=== PATIENT | female | born 1990 | race Caucasian/White ===

== ENCOUNTER 2021-10-19 09:37 | Emergency (ER) | payer BC, SELFPAY ==
[2021-10-19 09:49] VITALS: BP 119/79; PULSE 95; RESP 16; TEMP 37.3; O2SAT 99
--- NOTE | 2021-10-19 09:51 | ED.SKABFB ---
HPI - Skin/Abscess/Foreign Bdy General Chief complaint: Skin/Abscess/Foreign Body Stated complaint: rash Time Seen by Provider: 10/19/21 09:50 History of Present Illness HPI narrative: Ana María Wood is a 30-year-old female with a PMH of liver dysfunction, ovarian cancer, diabetes, who is here with a rash on the left flank that is believed to be shingles. She is currently taking chemotherapy by mouth, and has a generalized body rash and pruritic from her liver dysfunction Related Data Home Medications Medication Instructions Recorded Confirmed anastrozole 1 mg tablet 1 mg PO DAILY 10/19/21 10/19/21 blood-glucose sensor (Dexcom G6 10/19/21 10/19/21 Sensor device) buspirone 10 mg tablet 10 mg PO DAILY 10/19/21 10/19/21 colestipol 1 gram tablet 1 g PO DAILY 10/19/21 10/19/21 empagliflozin 25 mg tablet 25 mg PO DAILY 10/19/21 10/19/21 (Jardiance) ezetimibe 10 mg tablet 10 mg PO DAILY 10/19/21 10/19/21 insulin aspart U-100 100 unit/mL See Rx Instructions .Route .COMPLEX 10/19/21 10/19/21 subcutaneous solution (Novolog U-100 Insulin aspart) metformin 1,000 mg tablet 1,000 mg PO DAILY 10/19/21 10/19/21 rosuvastatin 20 mg tablet 20 mg PO DAILY 10/19/21 10/19/21 ursodiol 500 mg tablet 500 mg PO DAILY 10/19/21 10/19/21 vortioxetine 20 mg tablet 20 mg PO DAILY 10/19/21 10/19/21 (Trintellix) Allergies Allergy/AdvReac Type Severity Reaction Status Date / Time No Known Allergies Allergy Verified 10/19/21 09:59 Review of Systems Review of Systems: CONSTITUTIONAL: Denies fever, chills, sweats. EYES: Denies visual changes, redness, discharge. ENT: Denies rhinorrhea, congestion, sore throat, otalgia. CARDIOVASCULAR: Denies chest pain, palpitations, edema. RESPIRATORY: Denies dyspnea, wheezing, cough GASTROINTESTINAL: Denies abdominal pain, nausea, vomiting, diarrhea. GENITOURINARY: Denies dysuria, hematuria, abnormal discharge SKIN: Denies rash or itching. NEUROLOGIC: Denies numbness, or focal weakness. PSYCHIATRIC: Denies anxiety or depression. Patient has shingles PMFSH Past Medical History Medical History Diabetes Liver dysfunction Ovarian cancer Family History Family History Other Diabetes mellitus High cholesterol Hypertension Social History Social History (Updated 10/19/21 @ 10:01 by Carla Montiel CNP) Smoking status: Never smoker Alcohol intake: current Comments At time of signature, I agree with nursing past medical, surgical, social and family history. There is no relevant family history pertinent to the presenting complaint. Exam Narrative: GENERAL: This is a well-nourished, well-developed patient, in mild distress. HEAD: normocephalic, atraumatic. EYES: Sclera clear/white. Vision is grossly intact. EARS: External ears normal, . Hearing grossly intact. NOSE: External nose normal without nasal discharge, nares without redness, no rhinorrhea. THROAT: Mucous membranes moist, NECK: Neck supple, CARDIOVASCULAR: Regular rate and rhythm without murmurs, gallops, or rubs. RESPIRATORY: Clear to auscultation. Breath sounds equal bilaterally. No wheezes, rales, or rhonchi. GASTROINTESTINAL: Abdomen soft, non-tender, SKIN: warm, intact with rash all over body that is pruritic-left flank coalesced lesions that are indurated and tender to touch NEURO: awake, alert, and oriented to person, place and time. There were no obvious focal neurologic abnormalities. Steady gait EXTREMITIES: Normal range of motion. BACK: Nontender without deformity Course Course Emergency Course: Patient comes with painful tight rash to left flank Rash appears to be shingles it stays within the dermatome of the left chest wall Started on acyclovir Level of Care: Express Care Visit Vital Signs Vital signs: Vital Signs Temperature 99.2 F 10/19/21 09:49 Pulse Rate 95 10/19/21 09:49 Respir
== END 2021-10-19 10:15 | disposition home or self-care (01) ==
PROVIDERS: Emergency Provider Nurse Practitioner
DX: B02.9 Zoster without complications (principal); E11.9 Type 2 diabetes mellitus without complications; K76.89 Other specified diseases of liver; C56.9 Malignant neoplasm of unspecified ovary; Z79.899 Other long term (current) drug therapy; Z79.84 Long term (current) use of oral hypoglycemic drugs; Z79.4 Long term (current) use of insulin
CPT/HCPCS: 99213; G0463

== ENCOUNTER 2022-10-27 12:47 | Emergency (ER) | payer OTHER, SELFPAY ==
[2022-10-27 13:04] VITALS: BP 107/58; PULSE 85; RESP 18; TEMP 36.4; O2SAT 100
--- NOTE | 2022-10-27 14:12 | ED.URI ---
HPI - URI/Sore Throat General Chief Complaint: Upper Respiratory Infection Stated Complaint: cough,congestion,body aches Time Seen by Provider: 10/27/22 14:07 Source: patient and RN notes reviewed Mode of arrival: ambulatory Limitations: no limitations History of Present Illness HPI Narrative: Patient presents today complaining of body aches, congestion, sore throat, headache since yesterday. Denies fever or cough. Currently rates her pain 6/10 and has tried no medication for symptoms prior to arrival. Patient reports 2 sick contacts with COVID-19. 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 Related Data Home Medications Medication Instructions Recorded Confirmed anastrozole 1 mg tablet 1 mg PO DAILY 10/19/21 10/19/21 blood-glucose sensor (Dexcom G6 10/19/21 10/19/21 Sensor device) buspirone 10 mg tablet 10 mg PO DAILY 10/19/21 10/19/21 colestipol 1 gram tablet 1 g PO DAILY 10/19/21 10/19/21 empagliflozin 25 mg tablet 25 mg PO DAILY 10/19/21 10/19/21 (Jardiance) ezetimibe 10 mg tablet 10 mg PO DAILY 10/19/21 10/19/21 insulin aspart U-100 100 unit/mL See Rx Instructions .Route .COMPLEX 10/19/21 10/19/21 subcutaneous solution (Novolog U-100 Insulin aspart) metformin 1,000 mg tablet 1,000 mg PO DAILY 10/19/21 10/19/21 rosuvastatin 20 mg tablet 20 mg PO DAILY 10/19/21 10/19/21 ursodiol 500 mg tablet 500 mg PO DAILY 10/19/21 10/19/21 vortioxetine 20 mg tablet 20 mg PO DAILY 10/19/21 10/19/21 (Trintellix) Allergies Allergy/AdvReac Type Severity Reaction Status Date / Time No Known Allergies Allergy Verified 10/27/22 14:16 Review of Systems Review of Systems: CONSTITUTIONAL: Denies fever, chills, or sweats.+ body aches EYES: Denies visual changes, redness, or discharge. ENT: Denies rhinorrhea, otalgia.+ congestion, sore throat CARDIOVASCULAR: Denies chest pain, palpitations, or edema. RESPIRATORY: Denies cough or dyspnea. GASTROINTESTINAL: Denies abdominal pain, nausea, vomiting, or diarrhea. GENITOURINARY: Denies dysuria or hematuria. SKIN: Denies rash, itching, or wounds. MUSCULOSKELETAL: Denies back pain, joint pain, or myalgia. NEUROLOGIC: Denies numbness, tingling, or weakness.+ headache PSYCH: Denies depression or anxiety. [facility] Past Medical History Medical History Diabetes Liver dysfunction Ovarian cancer Family History Family History Other Diabetes mellitus High cholesterol Hypertension Social History Social History Smoking status: Never smoker Alcohol intake: current Comments At time of signature, I have reviewed and agree with nursing past medical, surgical, social and family history unless otherwise noted. Please see nursing chart for further information. There is no relevant family history pertinent to the presenting complaint Exam Narrative: GENERAL: Mildly ill-appearing, well-nourished, and in no acute distress. HEAD: Normocephalic, atraumatic. EYES: EOMI. No redness or drainage. Conjunctivae normal. ENT: Mucous membranes pink and moist. Nares congested. No rhinorrhea. TMs normal bilaterally. Throat normal. Uvula midline. NECK: Normal AROM. Supple. No lymphadenopathy. CHEST: No respiratory distress. Clear to auscultation. HEART: Regular rate and rhythm. No murmur appreciated. Normal peripheral pulses. EXTREMITIES: Normal range of motion. No edema. SKIN: Warm, dry, no rash. Capillary refill normal. Normal skin turgor. NEURO: No focal deficits. Alert and oriented x3. Gait steady. PSYCH: Normal affect. No signs of depression or anxiety. Course Course Level of Care: Express Care Visit Vital Signs Vital signs: Vital Signs Temperature 97.6 F 10/27/22 13:04 Pulse Rate 85 10/27/22 13:04 Respiratory Rate 18 10/27/22 13:04 Blood Pressure 107/58 L 10/27/22 13:04 Pulse
== END 2022-10-27 14:19 | disposition home or self-care (01) ==
PROVIDERS: Emergency Provider Nurse Practitioner
DX: J02.0 Streptococcal pharyngitis (principal); Z20.822 Contact with and (suspected) exposure to COVID-19; E11.9 Type 2 diabetes mellitus without complications; Z79.4 Long term (current) use of insulin; Z79.84 Long term (current) use of oral hypoglycemic drugs; Z85.43 Personal history of malignant neoplasm of ovary
CPT/HCPCS: 87426; 87880; 99213; C9803; G0463

== ENCOUNTER 2023-01-16 22:04 | Emergency (ER) | payer OTHER, SELFPAY ==
[2023-01-16 22:05] VITALS: BP 139/76; PULSE 108; RESP 18; TEMP 36.4; O2SAT 100
--- NOTE | 2023-01-16 22:34 | ED.EAR ---
HPI - Ear Problem General Chief complaint: Ear Stated complaint: R ear pain Time Seen by Provider: 01/16/23 22:28 Source: patient Mode of arrival: ambulatory Limitations: no limitations History of Present Illness HPI Narrative: patient presents to the emergency department for right ear pain ongoing over the last week. She was evaluated at urgent care without diagnosis. Has had continued pain which prompted her to be seen. Denies fevers, erythema, edema, or drainage. Related Data Home Medications Medication Instructions Recorded Confirmed anastrozole 1 mg tablet 1 mg PO DAILY 10/19/21 10/19/21 blood-glucose sensor (Dexcom G6 10/19/21 10/19/21 Sensor device) buspirone 10 mg tablet 10 mg PO DAILY 10/19/21 10/19/21 colestipol 1 gram tablet 1 g PO DAILY 10/19/21 10/19/21 empagliflozin 25 mg tablet 25 mg PO DAILY 10/19/21 10/19/21 (Jardiance) ezetimibe 10 mg tablet 10 mg PO DAILY 10/19/21 10/19/21 insulin aspart U-100 100 unit/mL See Rx Instructions .Route .COMPLEX 10/19/21 10/19/21 subcutaneous solution (Novolog U-100 Insulin aspart) metformin 1,000 mg tablet 1,000 mg PO DAILY 10/19/21 10/19/21 rosuvastatin 20 mg tablet 20 mg PO DAILY 10/19/21 10/19/21 ursodiol 500 mg tablet 500 mg PO DAILY 10/19/21 10/19/21 vortioxetine 20 mg tablet 20 mg PO DAILY 10/19/21 10/19/21 (Trintellix) insulin pump cart,automated,BT 10/27/22 10/27/22 (Omnipod 5 G6 Pods (Gen 5) subcutaneous cartridge) Allergies Allergy/AdvReac Type Severity Reaction Status Date / Time No Known Allergies Allergy Verified 10/27/22 14:16 Review of Systems Review of Systems: CONSTITUTIONAL: Denies fever ENT: Reports otalgia. All systems reviewed & are unremarkable except as noted in HPI and below PMFSH Past Medical History Medical History Diabetes Liver dysfunction Ovarian cancer Family History Family History Other Diabetes mellitus High cholesterol Hypertension Social History Social History Smoking status: Never smoker Alcohol intake: current Exam Narrative: GENERAL: Well-appearing, well-nourished, and in no acute distress. HEAD: Normocephalic, atraumatic. EYES: EOMI. ENT: Bilateral TMs pearly stephens non-bulging. Left external auditory canal is normal. Right external auditory canal is erythematous and edematous. No mastoid tenderness or erythema NECK: Supple. No adenopathy or masses. EXTREMITIES: Normal range of motion. No edema. SKIN: Warm, dry, no rash. NEURO: No focal deficits. Alert and oriented x3. PSYCH: Normal mood and affect Course Course Emergency Course: patient agrees with plan of care Vital Signs Vital signs: Vital Signs Temperature 97.6 F 01/16/23 22:05 Pulse Rate 108 H 01/16/23 22:05 Respiratory Rate 18 01/16/23 22:05 Blood Pressure 139/76 01/16/23 22:05 Pulse Oximetry 100 01/16/23 22:05 Oxygen Delivery Room Air 01/16/23 22:05 Temperature 97.6 F 01/16/23 22:05 Pulse Rate 108 H 01/16/23 22:05 Respiratory Rate 18 01/16/23 22:05 Blood Pressure 139/76 01/16/23 22:05 Pulse Oximetry 100 01/16/23 22:05 Oxygen Delivery Room Air 01/16/23 22:05 Medical Decision Making MDM Narrative Medical decision making narrative: Patient's exam is consistent with otitis externa. Will be started on topical antibiotics. She is to follow up with primary provider. She was given warnings to return to the ER Vital Signs Vital Signs: Vital Signs Temperature 97.6 F 01/16/23 22:05 Pulse Rate 108 H 01/16/23 22:05 Respiratory Rate 18 01/16/23 22:05 Blood Pressure 139/76 01/16/23 22:05 Pulse Oximetry 100 01/16/23 22:05 Oxygen Delivery Room Air 01/16/23 22:05 Temperature 97.6 F 01/16/23 22:05 Pulse Rate 108 H 01/16/23 22:05 Respiratory Rate 18
[2023-01-16 22:52] VITALS: PULSE 100; RESP 18; O2SAT 99
[2023-01-16] MEDS: CIPROFLOXACIN HC OTIC 10 ML 3 DROP RIGHT EAR (23:08)
== END 2023-01-16 23:08 | disposition home or self-care (01) ==
LOC: ANHED 22:44
PROVIDERS: Emergency Provider Physician Assistant
DX: H60.501 Unspecified acute noninfective otitis externa, right ear (principal); E11.9 Type 2 diabetes mellitus without complications; Z85.43 Personal history of malignant neoplasm of ovary; Z79.4 Long term (current) use of insulin; Z79.84 Long term (current) use of oral hypoglycemic drugs
CPT/HCPCS: 99283; A9270